=== PATIENT | female | born 1970 | race African-American/Black ===

== ENCOUNTER → 2018-01-06 | Outpatient (CLI) | payer OTHER | LOC: FIMAGING 08:41 | PROVIDERS: ATTEND Obstetrics & Gynecology | DX: Z12.31 Encounter for screening mammogram for malignant neoplasm of breast (principal) ==

== ENCOUNTER 2018-10-14 05:36 | Day surgery (SDC) | payer OTHER ==
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
[2018-10-14] MEDS ORDERED: DOXYCYCLINE INJ 100 MG in NS 250 ML IV SCH (06:00)
[2018-10-14] MEDS ORDERED: LIDOCAINE 1% 2 ML INJ ONE (06:25)
[2018-10-14] MEDS ORDERED: MIDAZOLAM 2 MG/2 ML VIAL IVP ONE (06:44)
--- NOTE | 2018-10-14 06:45 | PDANEPAE ---
ANE Past Medical History - Cardiovascular History Hx Hypertension: Yes Hx Arrhythmias: No Hx Chest Pain: No Hx Coronary Artery / Peripheral Vascular Disease: No Hx CHF / Valvular Disease: No Hx Palpitations: No - Pulmonary History Hx COPD: No Hx Asthma/Reactive Airway Disease: No Hx Recent Upper Respiratory Infection: No Hx Oxygen in Use at Home: Yes Hx Sleep Apnea: Yes Sleep Apnea Screening Result - Last Documented: Positive Pulmonary History Comment: DAVID uses CPAP, will also be using 02. unknown flow rate - Neurologic History Hx Cerebrovascular Accident: No Hx Seizures: No Hx Dementia: No - Endocrine History Hx Diabetes: No Hypothyroid: No Hyperthyroid: No Obesity: yes, severe Endocrine History Comment: pre-diabetic no meds - Renal History Hx Renal Disorders: No - Liver History Hx Hepatic Disorders: No - Neurological & Psychiatric Hx Hx Neurological and Psychiatric Disorders: No - Cancer History Hx Cancer: No - Congenital Disorder History Hx Congenital Disorders: No - GI History GERD: mild Hx Gastrointestinal Disorders: Yes Gastrointestinal History Comment: reflux - Other Health History Other Health History: post nasal drip. endometriosis - Chronic Pain History Chronic Pain: No - Surgical History Prior Surgeries: none in last 5 yrs ANE Review of Systems Review of Systems: - Exercise capacity Exercise capacity: <4 METS METS (RN): 4 METS ANE Patient History - Allergies Allergies/Adverse Reactions: cephalexin Allergy (Verified 10/12/18 17:01) - Home Medications Home Medications: Losartan Potassium 10/12/18 [Last Taken 10/13/18 09:00] - NPO status NPO Since - Liquids (Date): 10/13/18 NPO Since - Liquids (Time): 20:00 NPO Since - Solids (Date): 10/13/18 NPO Since - Solids (Time): 20:00 - Anes Hx Anes Hx: no prior problems - Smoking Hx Smoking Status: Former smoker - Alcohol Use Alcohol Use: Rarely - Family Anes Hx Family Anes Hx: neg - N/A Family Hx Anesthesia Complications: none ANE Labs/Vital Signs - Vital Signs Blood Pressure: 130/74 Heart Rate: 99 Respiratory Rate: 18 O2 Sat (%): 93 Height: 165.1 cm Weight: 108.862 kg ANE Physical Exam - Airway Neck exam: decreased ROM Mallampati Score: Class 3 Mouth exam: normal dental/mouth exam - Pulmonary Pulmonary: no respiratory distress, no rales or rhonchi, clear to auscultation - Cardiovascular Cardiovascular: regular rate and rhythym, no murmur, rub, or gallop - ASA Status ASA Status: III ANE Anesthesia Plan Anesthesia Plan: general endotracheal anesthesia Total IV Anesthesia: No
[2018-10-14] MEDS ORDERED: BUPIVACAINE/EPI 0.5% 30 ML SDV ONE (07:08)
[2018-10-14] MEDS ORDERED: SILVER NITRATE APPLICATOR 1 APPL TP ONE (07:08)
[2018-10-14] MEDS ORDERED: LIDOCAINE 1% 300 MG/30 ML SDV ONE (07:08)
[2018-10-14] MEDS ORDERED: PROPOFOL/EMULSION 500 MG/50 ML BOTTLE IV ONE (07:15)
[2018-10-14] MEDS ORDERED: REMIFENTANIL HCL 1 MG VIAL ONE (07:15)
[2018-10-14] MEDS ORDERED: fentaNYL 100 MCG/2 ML INJ ONE ×2 (07:15→09:56)
[2018-10-14] MEDS ORDERED: PROPOFOL 200 MG/20 ML VIAL ONE (07:15)
[2018-10-14] MEDS ORDERED: ROCURONIUM 50 MG/5 ML VIAL ONE ×2 (07:17→08:14)
[2018-10-14] MEDS ORDERED: ONDANSETRON 4 MG/2 ML VIAL ONE (07:17)
[2018-10-14] MEDS ORDERED: DEXAMETHASONE 4 MG/ML VIAL ONE (07:17)
[2018-10-14] MEDS ORDERED: LIDOCAINE 2% 5 ML SDV ONE (07:18)
--- NOTE | 2018-10-14 07:19 | PDHPUP ---
History & Physical Update H&P update statement: This history and physical update is based on an assessment of the patient which was completed after admission or registration (within 24 hours), but prior to the surgery/procedure. H&P update: H&P reviewed & patient examined, no change in patient's condition since H&P completed
[2018-10-14] MEDS ORDERED: VASOPRESSIN 20 UNIT/ML VIAL ONE (07:33)
[2018-10-14] MEDS ORDERED: MONSELS-FERRIC SUBSULFATE 8 GM SDV TP ONE (07:33)
[2018-10-14] MEDS ORDERED: PHENYLEPHRINE HCL 100 MCG/ML SYR ONE (07:59)
[2018-10-14] MEDS ORDERED: ACETIC ACID IRR SOLN 0.25% 1,000 ML BTL ONE (08:25)
[2018-10-14] MEDS ORDERED: ONDANSETRON 4 MG/2 ML VIAL IVP PRN (08:27)
[2018-10-14] MEDS ORDERED: LR 500 ML IV PRN (08:27)
[2018-10-14] MEDS ORDERED: PROMETHAZINE HCL 25 MG/ML INJ IVP PRN (08:27)
[2018-10-14] MEDS ORDERED: PHENYLEPHRINE HCL 100 MCG/ML SYR IVP PRN (08:27)
[2018-10-14] MEDS ORDERED: oxyCODONE IR 5 MG TAB PO PRN ×2 (08:27→09:43)
[2018-10-14] MEDS ORDERED: HYDROCODONE/APAP 5/325 TAB PO PRN (08:27)
[2018-10-14] MEDS ORDERED: NALOXONE HCL 0.4 MG/ML INJ IVP PRN (08:27)
[2018-10-14] MEDS ORDERED: ACETAMINOPHEN 500 MG TAB PO PRN (08:27)
[2018-10-14] MEDS ORDERED: KETOROLAC 30 MG/1 ML SDV ONE (09:18)
[2018-10-14] MEDS ORDERED: NEOSTIGMINE METHYLSULFATE 5 MG/5 ML SYR ONE (09:31)
[2018-10-14] MEDS ORDERED: GLYCOPYRROLATE 0.2 MG/1 ML VIAL ONE ×5 (09:32→09:33)
[2018-10-14] MEDS ORDERED: IBUPROFEN 600 MG TAB PO PRN (09:43)
--- NOTE | 2018-10-14 09:43 | POSTOPPROG ---
Post Op Note Date of Operation: 10/14/18 Surgeon: Hillary Posada Quick Service Technician: KESHAV Singletary Anesthesiologist: Dr Dakotah Mcbride Anesthesia: GET(General Endotracheal) Pre-op Diagnosis: desires sterilization, menorrhagia endometrial polyp, cervical dysplasia Post-op Diagnosis: same Procedure: Laparoscopic BS, Hysteroscopy d and c, polypectomy, endo ablation, LEEP Findings: normal uterus tubes and ovaries, endometrial polyps Inf/Abcess present in the surg proc area at time of surgery?: No Depth: Organ Space EBL: Minimal Total fluids administered: 1200 Complications: none Specimen(s): bilateral fallopian tubes, endometrial curettings, cervical cone
[2018-10-14] MEDS ORDERED: ONDANSETRON DISINTEGRATING 4 MG TAB PO PRN (09:56)
[2018-10-14] MEDS: fentaNYL 100 MCG/2 ML INJ IVP PRN ×3 (10:00→10:29)
[2018-10-14] MEDS ORDERED: LABETALOL HCL 5 MG/ML 20 ML MDV IVP PRN (10:03)
--- NOTE | 2018-10-14 10:20 | POSTANESTH ---
Post Anesthetic Evaluation Cardiovascular Status: Normal, Stable Respiratory Status: Similar to Pre-op Cond. Level of Consciousness/Mental Status: Can Participate in Eval Pain Control: Adequate, Prn Tx Ordered Nausea/Vomiting Control: Adequate, Prn Tx Ordered Complications Possibly Related to Anesthesia: None Noted (DAVID)
[2018-10-14] MEDS ORDERED: oxyCODONE IR 5 MG TAB ONE (10:32)
--- NOTE | 2018-10-14 10:47 | GOP ---
DATE OF OPERATION: 10/14/2018 SURGEON: Hillary Posada MD POT LINING SUPERVISOR: Nina Valles, certified nurse 1st home care assistant. ANESTHESIA: General anesthesia. ANESTHESIOLOGIST: Dr. Dakotah Foss. PREOPERATIVE DIAGNOSIS: 1. Desires sterilization. 2. Menorrhagia and endometrial polyp. 3. Cervical dysplasia. POSTOPERATIVE DIAGNOSIS: 1. Desires sterilization. 2. Menorrhagia and endometrial polyp. 3. Cervical dysplasia. PROCEDURE PERFORMED: Laparoscopic bilateral salpingectomy, hysteroscopy, dilation and curettage, ramila ypectomy, Rosalva endometrial ablation and cervical LEEP. FINDINGS: SPECIMENS: Pathologic specimens will be bilateral fallopian tubes, endometrial curettings and cervic al cone specimen. ESTIMATED BLOOD LOSS: 20 cc. INDICATIONS: The patient is a 47-year-old, 2, para 2-0-0-2, who presented in my office for a n annual exam and a workup for her severe menorrhagia. She has heavy vaginal bleeding with her month ly cycles every 21-25 days. Two very heavy days where she uses 2 tampons and a pad and changes every 30-45 minutes. Bleeding has gotten worse over the last 2 years and is affecting her life. She is h aving difficulties going to work or doing any activities during her cycles. She had not done well wi th control pills in her life, wishes to have alternative forms of contraception. We did a work up for her menorrhagia, which included an ultrasound. Ultrasound revealed a thickened endometrium 0. 98 cm with an echogenic mass in the upper endometrium suggestive for a polyp. Ovaries were noted nor mal. Other pelvic structures were normal. She also underwent a Pap smear during that exam and the P ap smear was abnormal, showed atypical cells of undetermined significance and was positive for high-r isk HPV. Cervical colposcopy was performed, which revealed biopsies were significant for moderate dy splasia or TAY 2. I recommended a cervical LEEP for her TAY 2 at that time. The patient wished to d elay surgery for several months as she had just started a new job and wished to combine all the surge sedrick together at the end of the year, so she was consented for a laparoscopic bilateral salpingectomy . She is multiparous, desires sterilization, does not wish to have further children and declines all other forms of contraception. Hysteroscopy, dilation, curettage, polypectomy for the polyp and to t reat the menorrhagia and an endometrial ablation and then a cervical LEEP to treat her dysplasia. Destinee wilkes understood the risks and benefits of all the procedures. The risks including bleeding, infection, damage to organs, uterus, tubes, ovaries, bowel, bladder, nerves, blood vessels, ureters, risk of nee ding an open procedure, risk of needing additional procedures and risk of recurrent bleeding or dyspl maureen. She understood these risks and benefits agreed to proceed. DESCRIPTION OF PROCEDURE: Patient was taken to the operating room where she was placed under general anesthesia and intubated without difficulty. She was prepped and draped in the dorsal lithotomy pos ition and a Platt catheter was placed in her bladder. After a WHO time-out was performed and adequat e anesthesia was assured an open-sided speculum was placed in the vagina, and a single-tooth tenaculu m was used to grasp the anterior lip of the cervix. An acorn uterine manipulator was placed through that cervix to allow for uterine manipulation. Attention was then turned to the abdominal portion of the procedure. After injection of Marcaine, a 5 mm skin incision was made in the infraumbilical skin fold and an atraumatic trocar under direct vis ualization was placed at the umbilicus. Pneumoperitoneum was then created with carbon dioxide gas an d patient was placed in Trendelenburg and visualization was performed. She had normal uterus, tubes, and ovaries visualized. After injection of Marcaine, a 5 mm skin incision was placed in the right l ower quadrant and an atraumatic trocar was placed in that quadrant under direct visualization and the same identical procedure was performed on the left. The left fallopian tube was grasped at the fimb riated end and the LigaSure was used to dissect along the mesosalpinx from the fimbriated end to the cornual region and the tube was amputated and removed through the 5 mm port. Identical procedure was performed with the right fallopian tube and dissection was performed. Hemostasis was assured. The ovaries were visualized and were normal. The rest of the pelvis was normal and her appendix was visu alized and also normal. The pneumoperitoneum was allowed to escape. All the trocars were removed un rachna direct visualization and the 5 mm skin incisions were closed with 4-0 Monocryl. We then turned to the hysteroscopy portion of the procedure, where the tenaculum and acorn were remov ed. An open-sided speculum was placed. The uterus sounded to 7 cm and the cervix was progressively dilated with Leavitt dilators to a #7. The TruClear hysteroscope was gently inserted from the cervix t o the fundus and visualization of the cavity was performed and there were numerous endometrial polyps and redundant tissue in the cavity. The polyp blade morcellator was advanced through the operative channel. A window lock was performed and the polyps were morcellated with the morcellator under dire ct visualization and without difficulty. The tubal ostia were then visualized and the cavity was nor mal. The hysteroscope was then removed. The Rosalva endometrial ablation device was gently inserted through the cervix and advanced to the fundus. The array was opened. The balloon was inflated, and we passed the cavity test assessment. The ablation was then performed over 90 seconds without diffi culty. The Rosalva was removed and the final look with the hysteroscope revealed normal endometrial burn and cavity intact. The hysteroscope was then removed. A coated open-sided speculum was placed in the vagina, and a vaginal wall retractor was used laterally. The 20 x 10 mm cervical loop was use d 40 cut and the cervical cone specimen was removed in 3 segments. The ball cautery was then perform ed to the entire cervical bed for hemostasis and Monsel's was placed and good hemostasis was assured. Before I performed the LEEP I injected 10 cc of 1% Marcaine. The patient tolerated all the procedure s well. Sponge, lap, needle, and instrument counts were correct x3. Patient went to the recovery ro om in good condition. FLUID REPLACEMENT: 1000 cc. URINE OUTPUT: 150 cc. /[id number]/MODL
[2018-10-14 13:04] VITALS: BP 146/71
== END 2018-10-14 12:45 | disposition home or self-care (01) ==
LOC: FSGY 05:36
PROVIDERS: ATTEND Obstetrics & Gynecology
PROC: 0UT74ZZ Resection of Bilateral Fallopian Tubes, Percutaneous Endoscopic Approach (ICD-10-PCS; principal; 2018-10-14 07:15)
PROC: 0UBC8ZX Excision of Cervix, Via Natural or Artificial Opening Endoscopic, Diagnostic (ICD-10-PCS; principal; 2018-10-14 07:15)
PROC: 0UDB8ZZ Extraction of Endometrium, Via Natural or Artificial Opening Endoscopic (ICD-10-PCS; principal; 2018-10-14 07:15)
DX: Z30.2 Encounter for sterilization (principal); N92.1 Excessive and frequent menstruation with irregular cycle; N84.0 Polyp of corpus uteri; N87.1 Moderate cervical dysplasia; G47.33 Obstructive sleep apnea (adult) (pediatric); R73.03 Prediabetes; Z87.891 Personal history of nicotine dependence
CPT/HCPCS: 57460; 58563; 58661; C1782; J1100; J1885; J2250; J2370; J2405; J2704; J2710; J3010